=== PATIENT | male | born 1980 | race Hispanic/Latino ===

== ENCOUNTER 2024-05-25 21:06 | Emergency (ER) | payer SELFPAY ==
[2024-05-25 21:09] VITALS: BP 146/112
[2024-05-25 21:23] VITALS: BMI 28.3
--- NOTE | 2024-05-25 21:46 | ED.GENMED ---
History of Present Illness
General
Chief Complaint: Crisis Evaluation
Time Seen by Provider: 05/25/24 21:26
History of Present Illness
History of Present Illness:
Patient presents to the emergency department with laceration to the left forearm. Notes that this happened 2 days ago when he was working on his car. States he has been very busy so he did not come to the hospital. Tonight he got in a fight with
his mother who called the police when he made a passive suicidal statement. He states he was just going to let his arm bleed out though he states he was getting about this. Denies any history of psychiatric disease or suicidal attempts. Denies
any paranoia or hallucinations. denies any substance abuse
Phy Exam
Physical Exam
Physical Exam:
GENERAL APPEARANCE: NAD, well developed/ well nourished
EYES lids/conjunctiva normal
EARS/NOSE/THROAT Mucous membranes moist, uvula midline without oral pharyngeal erythema, exudate or swelling
HEAD/NECK normocephalic atraumatic, neck is supple.
RESPIRATORY respiratory effort normal, speaks in full sentences, no accessory muscle use. Lungs clear to auscultation without rhonchi, wheezes, rales
CARDIAC Regular rate and rhythm, no edema.
ABDOMINAL Soft, ND/NT. No pulsatile masses on exam, rebound tenderness, Lopez sign or pain over Mcburney's point.
MUSCLES/EXTREMITIES there is a 2 cm laceration to the left volar forearm. This is partial-thickness there is no exposed tendon. Distally pulses are strong sensation intact to light touch throughout. Full range of motion of all digits. 5/5
strength throughout
SKIN Warm, pink and dry. No rashes
NEUROLOGICAL Speech is clear and appropriate. Normal level of consciousness. 5/5 strength in all extremities.
PSYCH Normal mood and affect. Judgement/competence is appropriate. Somewhat rambling speech, though linear
Course
Orders/Labs/Results
Orders:
Orders
05/25/24 21:45
Tetanus/Diphth/Acelpertussis [Adacel] 0.5 ml .ROUTE .STK-MED ONE
Tetanus/Diphth/Acelpertussis [Adacel] 0.5 ml IM .ONCE ONE
05/25/24 21:49
Crisis Consult Urgent
Reason for Consult: suicidal statement
Vital Signs
Initial and Last Documented VS:
Initial Vital Signs
Temp Pulse Resp BP Pulse Ox
98.0 F 111 18 146/112 98
05/25/24 21:09 05/25/24 21:09 05/25/24 21:09 05/25/24 21:09 05/25/24 21:09
Last Documented Vital Signs
Temp Pulse Resp BP Pulse Ox
98.0 F 90 18 136/103 98
05/25/24 21:09 05/25/24 22:08 05/25/24 21:09 05/25/24 22:08 05/25/24 21:09
*Critical Care Note
Total Time (30-74mins, 75-104mins- exclusive of procedures): Not Applicable
ED Attending Note
ED Attending Note
ED Attending Note:
laceration too old for sutures. Will dress with antibiotics and allow to heal by secondary intention. Will update tetanus. Will clear for crisis. Patient seen by crisis who cleared for discharge
-
Portions of this chart may have been created with voice recognition software.� Occasional wrong word or��sound alike� substitutions may have occurred due to the inherent limitations of voice recognition software.
Discharge Plan
Departure
Patient Disposition: Home (Routine Discharge)
Date of Disposition: 05/25/24
Time of Disposition: 22:52
Patient with high blood pressure during this ER visit?: Yes
Discharge Problem:
Laceration
Instructions: Depression, Adult (DC), Laceration
Referrals:
NONE,* [Family Provider] -
Interventions
Interventions:
*Risk Screen - Suicide Last Done: 05/25/24 21:13
*General Assessment Last Done: 05/25/24 21:13
*Neglect/Abuse Screening Last Done: 05/25/24 21:13
*ED- Fall Risk Assessment Last Done: 05/25/24 21:23
*ED COVID-19 Vaccine History Last Done: 05/25/24 21:13
ED-Psychological Assessment Last Done: 05/25/24 21:29
Discharge Date and Time
Print Language: WALLISIAN
[2024-05-25] MEDS: ADACEL 0.5 ML IM (21:50)
[2024-05-25 22:08] VITALS: BP 136/103
== END 2024-05-25 23:07 | disposition home or self-care (01) ==
LOC: EMR 21:06
PROVIDERS: EMERGENCY PHYSICIAN Emergency Medicine
DX: S51.812A Laceration without foreign body of left forearm, initial encounter (principal); X58.XXXA Exposure to other specified factors, initial encounter; R46.89 Other symptoms and signs involving appearance and behavior; Z23 Encounter for immunization
CPT/HCPCS: 90471; 99282; 90715